=== PATIENT | female | born 1965 | race Caucasian/White ===

== ENCOUNTER 2019-05-01 16:36 | Emergency (ER) | payer BC ==
[~2019-05-01] VITALS: Ht 157.5 cm; Wt 54.4 kg
--- NOTE | 2019-05-01 16:50 | NUR ---
ED Nurse Note: PT WALKED IN TO ER TODAY FROM HOME. AOX4. PT C/O SPIDER BITE TO RIGHT WRIST. PT DENIES PAIN. PT PRESENTS WITH RED, ELEVATED INSECT BITE KYM TO RIGHT WRIST WITH NECROTIC CENTER THAT IS WARM TO TOUCH. FULL ROM OF WRIST AND DIGITS, CAP REFILL <3 SECONDS, CIRCULATION AND SENSATION INTACT. PT DENIES FEVER, NAUSEA, OR VOMITING.
[2019-05-01 16:51] VITALS: BP 124/82
[2019-05-01] MEDS ORDERED: NAPROXEN500 M2 ORAL (16:57)
[2019-05-01] MEDS ORDERED: CEPHALEXIN500 MG ORAL (16:57)
--- NOTE | 2019-05-01 16:57 | Emergency Room Report ---
History of Present Illness General Chief Complaint: Skin Rash/Abscess Source: Patient Present Illness HPI 54-year-old female with no significant past medical history here complaining of 1 week of pain and erythema and right breast after being bit. Patient reports that she believes she was bit by a spider as she was working in the attic a week ago. Complains of chills however denies fever nausea vomiting. Rating the pain localized 3 out of 10 without radiation denying tingling numbness. Denies pus drainage. Patient is capable of moving her hand in all directions and sensory and motor intact. Denies chest pain, shortness of breath, palpitation, and all other associated symptoms. Allergies: Coded Allergies: No Known Allergies (Unverified , 05/01/19) Patient History Past Medical History: see triage record Past Surgical History: unable to obtain Pertinent Family History: none Last Menstrual Period: menopause Now: No Immunizations: other - tdap today Reviewed Nursing Documentation: PMH: Agreed; PSxH: Agreed Nursing Documentation-PMH Past Medical History: No History, Except For History Of Psychiatric Problem: Yes - Depression Review of Systems All Other Systems: negative except mentioned in HPI Physical Exam Vital Signs Date Time Temp Pulse Resp B/P (MAP) Pulse Ox O2 Delivery O2 Flow Rate FiO2 05/01/19 16:43 98.4 96 14 128/88 (101) 96 Room Air Sp02 EP Interpretation: reviewed, normal General Appearance: normal inspection, well appearing, no apparent distress, alert, GCS 15 Head: normocephalic, atraumatic Eyes: bilateral eye normal inspection, bilateral eye PERRL ENT: normal ENT inspection, hearing grossly normal, normal pharynx Neck: normal inspection, full range of motion, supple, thyroid normal Respiratory: normal inspection, chest non-tender, lungs clear, normal breath sounds, no rhonchi, no wheezing Cardiovascular #1: normal inspection, regular rate, rhythm, no edema, no murmur Cardiovascular #2: 2+ radial (R), 2+ radial (L) Gastrointestinal: normal inspection, non tender, soft Genitourinary: no CVA tenderness Neurologic: normal inspection, alert, oriented x3 Psychiatric: normal inspection, judgement/insight normal, memory normal Skin: other - Insect bite and cellulitis right wrist Lymphatic: normal inspection, no adenopathy Medical Decision Making PA Attestation All diagnoses and treatment plans were reviewed and discussed with my supervising physician Dr. Yip Diagnostic Impression: Primary Impression: Cellulitis of hand Additional Impression: Insect bite ER Course 54-year-old female with no significant past medical history here complaining of 1 week of pain and erythema and right breast after being bit. Patient reports that she believes she was bit by a spider as she was working in the attic a week ago. Complains of chills however denies fever nausea vomiting. Rating the pain localized 3 out of 10 without radiation denying tingling numbness. Denies pus drainage. Patient is capable of moving her hand in all directions and sensory and motor intact. Denies chest pain, shortness of breath, palpitation, and all other associated symptoms. Ddx considered but are not limited to : Cellulitis, DVT, superficial infection, abscess Vital signs: are WNL, pt. is afebrile H&PE are most consistent with: Cellulitis right wrist secondary to insect bite ORDERS: Tdap, Keflex, naproxen ED INTERVENTIONS: Tdap, wound clean and dressed DISCHARGE: At this time pt. is stable for d/c to home. Will provide printed patient care instructions, and any necessary prescriptions. Care plan and follow up instructions have been discussed with the patient prior to discharge. Return to the emergency room with fever and chills follow-up with a primary care provider for any changes take medication as directed Last Vital Signs Date Time Temp Pulse Resp B/P (MAP) Pulse Ox O2 Delivery O2 Flow Rate FiO2 05/01/19 16:51 98.2 92 16 124/82 98 Room Air Disposition: HOME, SELF-CARE Condition: Stable Scripts Naproxen* (NAPROXEN*) 500 Mg Tablet 500 MG ORAL TWICE A DAY, #30 TAB Prov: Brenda Puri 05/01/19 Cephalexin* (KEFLEX*) 500 Mg Capsule 500 MG ORAL EVERY 6 HOURS for 7 Days, #28 CAP Prov: Brenda Puri 05/01/19 Patient Instructions: Cellulitis, [id number], Insect Bite, [id number] Additional Instructions: Take medication as directed follow-up with your primary care physician if fever and chills continue with her to the emergency room Brenda Puri May 01, 2019 16:56
[2019-05-01] MEDS ORDERED: Tetanus/Diptheria/Pertussis IM ONE (17:00)
[2019-05-01 17:22] VITALS: BP 120/84
--- NOTE | 2019-05-01 17:23 | NUR ---
ER DISCHARGE NOTE: Patient is cleared to be discharged per ERMD, pt is aox4, on room air, with stable vital signs. pt was given dc and prescription instructions, pt was able to verbalize understanding, pt id band removed. pt is able to ambulate with steady gait. pt took all belongings.
== END 2019-05-01 17:20 | disposition home or self-care (01) ==
LOC: EMR 17:18
DX: L03.113 Cellulitis of right upper limb (principal); S60.861A Insect bite (nonvenomous) of right wrist, initial encounter; W57.XXXA Bitten or stung by nonvenomous insect and other nonvenomous arthropods, initial encounter; Y92.9 Unspecified place or not applicable; Z23 Encounter for immunization; F32.9 Major depressive disorder, single episode, unspecified
CPT/HCPCS: 90471; 90715; 99283